=== PATIENT | male | born 1990 | race Hispanic/Latino ===

== ENCOUNTER 2021-11-01 20:58 | Emergency (ER) | payer OTHER ==
[~2021-11-01] VITALS: Ht 182.9 cm; Wt 97.5 kg
== END 2021-11-01 23:58 | disposition home or self-care (01) ==
LOC: ER 22:25
DX: R10.12 Left upper quadrant pain (principal); R25.2 Cramp and spasm
CPT/HCPCS: 71045; 74018; 93005